=== PATIENT | male | born 1970 | race Caucasian/White ===

== ENCOUNTER 2019-11-18 17:37 | Emergency (ER) | payer SELFPAY ==
[2019-11-18 17:46] VITALS: BP 141/75; PULSE 69; RESP 18; TEMP 37.1; O2SAT 100
--- NOTE | 2019-11-18 18:04 | ED.BACK ---
HPI - Back Pain/Injury General Chief Complaint: Back Pain/Injury Stated Complaint: Lower back pain Time Seen by Provider: 11/18/19 18:04 Source: patient Mode of arrival: ambulatory Limitations: no limitations History of Present Illness HPI Narrative: Tor Cole is a 49 yo male with no PMH who comes to express care with right-sided lower back pain. 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 Using ibuprofen but still unable to get up and move around comfortably Related Data Allergies Allergy/AdvReac Type Severity Reaction Status Date / Time No Known Allergies Allergy Mild Verified 11/18/19 17:59 Review of Systems Review of Systems: Narrative: CONSTITUTIONAL: Denies fever, chills, sweats. EYES: Denies visual changes, redness, discharge. ENT: Denies rhinorrhea, congestion, sore throat, otalgia. CARDIOVASCULAR: Denies chest pain, palpitations, edema. RESPIRATORY: Denies dyspnea, wheezing, cough GASTROINTESTINAL: Denies abdominal pain, nausea, vomiting, diarrhea. GENITOURINARY: Denies dysuria, hematuria, abnormal discharge SKIN: Denies rash or itching. NEUROLOGIC: Denies numbness, or focal weakness. PSYCHIATRIC: Denies anxiety or depression. Right-sided lower back pain PMFSH Family History Family History Other Breast cancer Social History Social History Smoking status: Never smoker Alcohol intake: current Comments At time of signature, I agree with nursing past medical, surgical, social and family history. There is no relevant family history pertinent to the presenting complaint. Patient is follow-up with primary care for elevated blood pressure which may be due to back pain today Exam Narrative: Exam Narrative: GENERAL: This is a well-nourished, well-developed patient, in moderate distress. HEAD: normocephalic, atraumatic. EYES: Sclera clear/white. Vision is grossly intact. EARS: External ears normal. Hearing grossly intact. NOSE: External nose normal without nasal discharge, nares without redness, no rhinorrhea. THROAT: Mucous membranes moist, posterior pharynx NECK: Neck supple, non-tender CARDIOVASCULAR: Regular rate and rhythm without murmurs, gallops, or rubs. RESPIRATORY: Clear to auscultation. Breath sounds equal bilaterally. No wheezes, rales, or rhonchi. GASTROINTESTINAL: Abdomen soft, non-tender, SKIN: warm, intact with no suspicious lesions or rash, good texture and turgor. NEURO: awake, alert, and oriented to person, place and time. There were no obvious focal neurologic abnormalities. Steady gait EXTREMITIES: Normal range of motion. BACK: Nontender without deformity pain in the lower right back is tender to palpation there is no radiation patient moves slowly particularly when moving laterally Course Course Emergency Course: Started on baclofen and Flexeril Follow-up with orthopedics or PCP Vital Signs Vital signs: Vital Signs Temperature 98.8 F 11/18/19 17:46 Pulse Rate 69 11/18/19 17:46 Respiratory Rate 18 11/18/19 17:46 Blood Pressure 141/75 H 11/18/19 17:46 Pulse Oximetry 100 11/18/19 17:46 Temperature 98.8 F 11/18/19 17:46 Pulse Rate 69 11/18/19 17:46 Respiratory Rate 18 11/18/19 17:46 Blood Pressure 141/75 H 11/18/19 17:46 Pulse Oximetry 100 11/18/19 17:46 MDM - Back Pain/Injury Differential Diagnosis Differential diagnosis: Likely lumbar radiculopathy, sciatica, strain of lumbar region and other Discharge Plan Discharge Clinical Impression: Strain of lumbar region Qualifiers: Encounter type: initial encounter Qualified Code(s): S39.012A - Strain of muscle, fascia and tendon of lower back, initial encounter Patient Disposition: Home, Self-Care Condition: Stable Instructions: Low Back Strain (ED) Prescriptions: New baclofen 10 mg tablet 10 mg
== END 2019-11-18 18:16 | disposition home or self-care (01) ==
PROVIDERS: Emergency Provider Nurse Practitioner
DX: S39.012A Strain of muscle, fascia and tendon of lower back, initial encounter (principal); X50.9XXA Other and unspecified overexertion or strenuous movements or postures, initial encounter
CPT/HCPCS: 99213; G0463

== ENCOUNTER 2021-04-19 08:17 | Emergency (ER) | payer BC, SELFPAY ==
--- NOTE | ~2021-04-19 | XR_ITS ---
EXAMINATION: XR chest 2V EXAM DATE: 04/19/2021 08:56 INDICATION: Cough. TECHNIQUE: Frontal and lateral projections of the chest obtained and reviewed. There is no prior cas dy for comparison. FINDINGS: The lungs are clear. There are no pleural effusions. The cardiomediastinal silhouette is within normal limits. There is no pneumothorax suspected. The bones and soft tissues are unremarkab le. Cervical fusion hardware. IMPRESSION: Unremarkable chest x-ray exam. Reviewed, dictated and finalized at location A.
[2021-04-19 08:20] VITALS: BP 148/83; PULSE 59; RESP 18; TEMP 36.9; O2SAT 99
--- NOTE | 2021-04-19 08:49 | ED.URI ---
HPI - URI/Sore Throat General Chief Complaint: Upper Respiratory Infection Stated Complaint: congestion cough aches runny nose Time Seen by Provider: 04/19/21 08:45 Source: patient Mode of arrival: ambulatory Limitations: no limitations History of Present Illness HPI Narrative: Tor Cole is a 51 yo male with no PMH is a 1 pack a day smoker who [facility] symptoms since Saturday of congestion in his chest he has had nasal congestion and feels like his head is throbbing and congested. He describes his feel like a mushroom. He denies fever he is a 1 pack-a-day smoker he has taken Mucinex and cold and flu [id number] medication Related Data Home Medications Medication Instructions Recorded Confirmed famotidine 40 mg PO DAILY 04/19/21 04/19/21 Allergies Allergy/AdvReac Type Severity Reaction Status Date / Time No Known Allergies Allergy Mild Verified 11/18/19 17:59 Review of Systems Review of Systems: CONSTITUTIONAL: Denies fever, chills, sweats. EYES: Denies visual changes, redness, discharge. ENT: Has rhinorrhea, has congestion, has sore throat, otalgia. CARDIOVASCULAR: Denies chest pain, palpitations, edema. RESPIRATORY: Denies dyspnea, wheezing, has mild cough GASTROINTESTINAL: Denies abdominal pain, nausea, vomiting, diarrhea. GENITOURINARY: Denies dysuria, hematuria, abnormal discharge SKIN: Denies rash or itching. NEUROLOGIC: Denies numbness, or focal weakness. PSYCHIATRIC: Denies anxiety or depression. [facility] Family History Family History Other Breast cancer Social History Social History (Updated 04/19/21 @ 08:55 by Tiffanie Agustin CNP) Smoking packs per day: 1 Smoking cigarettes per day: 20.0 Smoking status: Current every day smoker Alcohol intake: current Comments At time of signature, I agree with nursing past medical, surgical, social and family history. There is no relevant family history pertinent to the presenting complaint. Exam Narrative: GENERAL: This is a well-nourished, well-developed patient, in mild distress. HEAD: normocephalic, atraumatic. EYES: Sclera clear/white. Vision is grossly intact. EARS: External ears normal, auditory canals clear and without drainage, TMs normal without perforation. Hearing grossly intact. NOSE: External nose normal with nasal discharge, nares with redness, has rhinorrhea. THROAT: Mucous membranes moist, posterior pharynx erythema NECK: Neck supple, non-tender CARDIOVASCULAR: Regular rate and rhythm without murmurs, gallops, or rubs. RESPIRATORY: Diminished to auscultation. Has cough, congestion.breath sounds equal bilaterally. No wheezes, rales, or rhonchi. GASTROINTESTINAL: Abdomen soft, SKIN: warm, intact with no suspicious lesions or rash, good texture and turgor. NEURO: awake, alert, and oriented to person, place and time. There were no obvious focal neurologic abnormalities. Steady gait EXTREMITIES: Normal range of motion. BACK: Nontender without deformity Course Course Emergency Course: Patient here with head congestion chest congestion cough sore throat since Saturday Swab for strep, Covid, flu- all negative Chest x-ray done-unremarkable chest x-ray no pleural effusion the cardiomediastinal silhouette is normal with no pneumothorax no bony or soft tissue findings. Patient has cervical fusion hardware Patient has high blood pressure and does not have a primary care physician so was referred using a referral sheet Started on prednisone, Tessalon Francisco, Zyrtec Vital Signs Vital signs: Vital Signs Temperature 98.4 F 04/19/21 08:20 Pulse Rate 59 L 04/19/21 08:20 Respiratory Rate 18 04/19/21 08:20 Blood Pressure 148/83 H 04/19/21 08:20 Pulse Oximetry 99 04/19/21 08:20 Temperature 98.4 F 04/19/21 08:20 Pulse Rate 59 L 04/19/21 08:20 Respiratory Rate 18 04/19/21 08:20 Blood Pressure 148/83 H 04/19/21 08:20 Pulse Oximetry 99
== END 2021-04-19 09:47 | disposition home or self-care (01) ==
PROVIDERS: Emergency Provider Nurse Practitioner
DX: J06.9 Acute upper respiratory infection, unspecified (principal); Z20.822 Contact with and (suspected) exposure to COVID-19; F17.210 Nicotine dependence, cigarettes, uncomplicated
CPT/HCPCS: 71046; 87081; 87426; 87804; 87880; 99213; C9803; G0463

== ENCOUNTER 2021-11-23 08:36 | Emergency (ER) | payer SELFPAY ==
--- NOTE | ~2021-11-23 | XR_ITS ---
EXAMINATION: XR chest 2V DATE: 11/23/2021 09:12 INDICATION: Cough TECHNIQUE: Frontal and lateral views of the chest are obtained COMPARISON: 04/19/2021 FINDINGS: The lungs are free of acute opacities. There is no pleural effusion or pneumothorax. The ca rdiomediastinal silhouette is normal. There is moderate thoracic spondylosis. Surgical changes are no shayy in the lower cervical spine. IMPRESSION: 1. No acute cardiopulmonary abnormality. Reviewed, dictated and finalized at location B.
[2021-11-23 08:43] VITALS: BP 166/78; PULSE 66; RESP 16; TEMP 36.8; O2SAT 98
--- NOTE | 2021-11-23 08:53 | ED.URI ---
HPI - URI/Sore Throat General Chief Complaint: Upper Respiratory Infection Stated Complaint: Cough/Chest Congestion Time Seen by Provider: 11/23/21 08:54 Source: patient and RN notes reviewed Mode of arrival: ambulatory Limitations: no limitations History of Present Illness HPI Narrative: 51-year-old male presented for complaint of cough, runny nose and sweats over the last 3 days. Endorses decreased appetite last night, sinus pressure, cough is productive, endorses mild wheezing this morning. He denies shortness of breath, chest pain, heart racing, nausea, vomiting, diarrhea, fevers or chills. He has not taken anything for symptoms. He is boosted for COVID, he is not vaccinated for the flu. He smokes 2 packs/day. MD elicited complaint: cough Related Data Home Medications Medication Instructions Recorded Confirmed folic acid 1 mg PO DAILY 11/23/21 11/23/21 meloxicam 15 mg PO DAILY 11/23/21 11/23/21 methotrexate sodium 2.5 mg PO DIRECTED 11/23/21 11/23/21 Allergies Allergy/AdvReac Type Severity Reaction Status Date / Time No Known Allergies Allergy Mild Verified 11/18/19 17:59 Review of Systems Review of Systems: CONSTITUTIONAL: denies malaise, chills, sweats, fever EYES: Denies visual changes, redness, or discharge ENT: Reports rhinorrhea, congestion, sinus pain, otalgia, sore throat CARDIOVASCULAR: Denies chest pain, palpitations, edema RESPIRATORY: Reports cough, post nasal drainage. Denies dyspnea GASTROINTESTINAL: Denies abdominal pain, nausea, vomiting, diarrhea SKIN: Denies rash or itching MUSCULOSKELETAL: denies myalgia NEUROLOGIC: endorses headache [facility] Family History Family History Other Breast cancer Social History Social History Smoking packs per day: 1 Smoking cigarettes per day: 20.0 Smoking status: Current every day smoker Alcohol intake: current Exam Narrative: GENERAL: Ill-appearing, nontoxic HEAD: Normocephalic EYES: conjunctivae clear ENT: Mucous membranes moist. TM pearly rae with dull light reflex bilaterally; no tragal tenderness. Canals erythematous bilaterally. Oropharynx erythematous without lesions or exudate, no drooling, no hoarseness, no trismus, uvula midline NECK: Supple. No lymphadenopathy CHEST: Clear to auscultation, breath sounds equal. No wheezing, rhonchi, rales, or stridor. No respiratory distress, speaks in full sentences. HEART: Regular rate and rhythm. No murmur heard. SKIN: Warm, dry, no rash. NEURO: Alert and oriented x3. PSYCH: Normal mood and affect Course Course Emergency Course: Patient is aware of diagnosis, understands and agrees to treatment plan. Anticipatory guidance given. Patient agrees to follow-up as directed and is aware of reasons to seek care at the emergency department. Portions of this record may have been created with voice recognition software Level of Care: Express Care Visit Vital Signs Vital signs: Vital Signs Temperature 98.2 F 11/23/21 08:43 Pulse Rate 66 11/23/21 08:43 Respiratory Rate 16 11/23/21 08:43 Blood Pressure 166/78 H 11/23/21 08:43 Pulse Oximetry 98 11/23/21 08:43 Temperature 98.2 F 11/23/21 08:43 Pulse Rate 66 11/23/21 08:43 Respiratory Rate 16 11/23/21 08:43 Blood Pressure 166/78 H 11/23/21 08:43 Pulse Oximetry 98 11/23/21 08:43 reviewed MDM - URI/Sore Throat MDM Narrative Medical decision making narrative: Symptoms c/w upper respiratory infection/ allergic rhinitis. Advised supportive treatments. Do not suspect underlying cardiopulmonary process Patient is nontoxic appearing and appropriate for outpt treatment and f/u. Differential Diagnosis Differential diagnosis: Likely upper respiratory infection, sinusitis, viral infection and influenza Lab Data Attestation: I reviewed the patient's lab results. Labs: Influenza A Screen Negative
== END 2021-11-23 09:29 | disposition home or self-care (01) ==
PROVIDERS: Emergency Provider Nurse Practitioner Family
DX: J06.9 Acute upper respiratory infection, unspecified (principal); F17.210 Nicotine dependence, cigarettes, uncomplicated; Z20.822 Contact with and (suspected) exposure to COVID-19
CPT/HCPCS: 71046; 87426; 87804; 99213; C9803; G0463

== ENCOUNTER 2022-11-08 10:32 | Emergency (ER) | payer OTHER, SELFPAY ==
[2022-11-08] VITALS (11 sets, daily range): BP systolic 152–174; BP diastolic 82–97; PULSE 66–68; RESP 16; TEMP 36.2; O2SAT 93–100
--- NOTE | ~2022-11-08 | CT_ITS ---
CT of the Abdomen and Pelvis: Indication: Abdominal pain, diarrhea Technique: 2.5 mm axial scans were obtained through the abdomen and pelvis following intravenous adm inistration of 100 cc of Omnipaque 350. Dose reduction technique was used on this scan by utilizing a utomated exposure control and iterative reconstruction technique. The dose-length product (DLP) was 1 565.17 mGy-cm. Findings: Scans through the lung bases are unremarkable. The liver, spleen, pancreas, gallbladder, adrenals and kidneys are within normal limits. No evidence of aortic aneurysm. No lymphadenopathy. No bowel obstruction or bowel wall thickening. There is no evidence to suggest acute appendicitis. Images through the pelvis were performed. Urinary bladder unremarkable. Prostate gland and seminal ve sicles are unremarkable. No ascites. Impression: No significant abnormalities seen. Reviewed, dictated and finalized at [facility]. Impression: No significant abnormalities seen.
[2022-11-08 11:54] LABS: Basophils Absolute Auto 0.1 K/mm3 (0.0-0.1); Basophils Percent Auto 0.8 % (0.2-1.2); Eosinophils Absolute Auto 0.4 K/mm3 (0-0.3); Hematocrit 45.9 % (42.0-52.0); Hemoglobin 15.5 g/dL (14.0-18.0); Immature Granulocyte Absolute 0.04 K/mm3 (0.00-0.031); Immature Granulocyte Percent A 0.4 % (0-0.5); Lymphocytes Absolute Auto 1.48 K/mm3 (0.9-3.2); Lymphocytes Percent Auto 16.1 % (18.3-44.2); Mean Corpuscular HGB Conc 33.8 g/dl (32-36); Mean Corpuscular Hemoglobin 33.3 pg (26-34); Mean Corpuscular Volume 98.7 fl (80-100); Mean Platelet Volume 9.5 fl (7.4-10.4); Monocytes Absolute Auto 1.1 K/mm3 (0.1-0.6); Monocytes Percent Auto 11.4 % (2.6-8.5); Neutrophils Absolute Auto 6.2 K/mm3 (1.3-6.7); Neutrophils Percent Auto 67.3 % (45.5-73.1); Platelet Count Result 250 k/mm3 (150-375); Red Blood Count 4.65 M/mm3 (4.6-6.20); Red Cell Distribution Width 13.2 % (11.5-14.5); White Blood Count 9.2 K/mm3 (4.5-10.0)
[2022-11-08 12:04] LABS: Alanine Aminotransferase 43 U/L (6-50); Albumin Level 4.3 g/dL (3.5-5.1); Alkaline Phosphatase 30 U/L (38-126); Anion Gap 11 mmol/L (8-16); Aspartate Amino Transferase 28 U/L (17-59); Bilirubin,Total 0.7 mg/dL (0.2-1.3); Blood Urea Nitrogen 15 mg/dL (9-20); Calcium 8.7 mg/dL (8.4-10.2); Carbon Dioxide 21 mmol/L (22-30); Chloride 105 mmol/L (98-107); Estimated CRCL calculation 141 ml/min; Estimated Glomerular Filt Rate > 60; Glucose 106 mg/dL (65-110); Lipase 71 U/L (23-300); Sodium 137 mmol/L (137-145)
[2022-11-08 12:13] LABS: Appearance Urine Clear (Clear); Bacteria Urine None Seen /hpf; Bilirubin Urine Negative (Negative); Color Urine Dark Yellow (Yellow); Glucose Urine UA Negative (Negative); Ketones Urine Trace mg/dL (Negative); Leukocyte Esterase Ur Trace LEU/UL (Negative); Nitrate Urine Negative (Negative); Non Pathogenic Casts 0-2; Protein Urine Trace mg/dL (Negative); Specific Grav Ur 1.025 (1.001-1.035); Squamous Epithelial Cell Urine None seen /hpf (Few); WBC Urine 0-5 /hpf
--- NOTE | 2022-11-08 12:26 | ED.GENADULT ---
HPI - General Adult General Chief complaint: Nausea/Vomiting/Diarrhea Stated complaint: watery diarrhea x 4 days with cold sweats Time Seen by Provider: 11/08/22 11:56 History of Present Illness HPI narrative: 52-year-old male presenting to the ED for evaluation of complaints of nausea vomiting diarrhea and diffuse abdominal pain for the last 4 days. Patient states approximate 4 days ago he began having symptoms of diarrhea and patient states he is mainly passing watery stool. Patient denies any blood in his stool. Patient states he has had multiple episodes of nausea but reports only 1 episode of vomiting. Patient denies any prior abdominal surgical history. Patient does have history of RA and does take methotrexate prednisone and meloxicam. Related Data Home Medications Medication Instructions Recorded Confirmed folic acid 1 mg tablet 1 mg PO DAILY 11/23/21 11/23/21 meloxicam 15 mg tablet 15 mg PO DAILY 11/23/21 11/23/21 methotrexate sodium 2.5 mg tablet 2.5 mg PO DIRECTED 11/23/21 11/23/21 Allergies Allergy/AdvReac Type Severity Reaction Status Date / Time No Known Allergies Allergy Mild Verified 11/08/22 11:38 Review of Systems Review of Systems: All systems reviewed & are unremarkable except as noted in HPI and below PMFSH Family History Family History Other Breast cancer Social History Social History Smoking packs per day: 1 Smoking cigarettes per day: 20.0 Smoking status: Current every day smoker Alcohol intake: current Exam Narrative: APPEARANCE: Well appearing, no pain, no distress, well-nourished. HEAD: normocephalic, atraumatic. EYES: PERRLA/EOMI, conjunctivae clear. NOSE: Normal no drainage NECK: Supple. No adenopathy, no masses. RESPIRATORY: Airway patent, respirations nonlabored. Clear to auscultation bilaterally, no rales, rhonchi, wheezing. CARDIOVASCULAR: Regular rate and rhythm without murmurs rubs or gallops. ABDOMINAL: Soft, nondistended, normal bowel sounds, diffuse abdominal pain no rebound or guarding MUSCULOSKELETAL: Moves all extremities. Strength/ROM intact, No edema, No calf tenderness. NEURO: Alert. Cranial nerves II through XII intact. Grossly intact SKIN: Warm, dry. Normal Color Course Course Emergency Course: 52-year-old male presented to the ED for evaluation nausea vomiting diarrhea diffuse abdominal pain. IV fluids and medications for pain control were ordered. Patient declined needing medications for nausea control at this time. Patient is afebrile with no leukocytosis. Patient's CMP is within normal limits. Due to patient's complaint of diffuse abdominal pain a CT scan is being ordered. Patient was updated on the plan for labs and imaging. All questions and concerns were addressed at this point. 1:[address] scan showed no significant abnormalities. No evidence of diverticulitis colitis appendicitis. Patient did have some hematuria but no other underlying evidence of infection. CT scan showed no evidence of ureteral calculi. Patient was updated on the results of his imaging. Patient will be provided Zofran for nausea control and advised to follow a clear liquid diet until his symptoms improved. Patient was also encouraged of close follow-up with GI. All question concerns were addressed and patient was comfortable to plan for discharge and close follow-up. Vital Signs Vital signs: Vital Signs Temperature 97.1 F L 11/08/22 11:38 Pulse Rate 68 11/08/22 11:38 Respiratory Rate 16 11/08/22 11:38 Blood Pressure 152/88 H 11/08/22 11:38 Pulse Oximetry 98 11/08/22 11:38 Oxygen Delivery Room Air 11/08/22 11:38 Temperature 97.1 F L 11/08/22 11:38 Pulse Rate 66 11/08/22 13:30 Respiratory Rate 16 11/08/22 11:38 Blood Pressure 152/90 H 11/08/22 13:30 Pulse Oximetry 98 11/08/22 13:30 Oxygen Delivery Room Air
[2022-11-08 12:32] LABS: Add Urine Microscopic? YES
[2022-11-08] MEDS: SODIUM CHLORIDE 0.9% IV 1,000 ML 999 ML IV CONT (12:33)
[2022-11-08] MEDS: HYDROmorphone HCL INJ (*CRX) 1 MG/ML SYR 0.5 MG IV PUSH (12:34)
== END 2022-11-08 13:48 | disposition home or self-care (01) ==
PROVIDERS: Emergency Medicine; Emergency Provider Emergency Medicine
DX: R11.2 Nausea with vomiting, unspecified (principal); R19.7 Diarrhea, unspecified; R31.9 Hematuria, unspecified; M06.9 Rheumatoid arthritis, unspecified; F17.210 Nicotine dependence, cigarettes, uncomplicated
CPT/HCPCS: 36415; 74177; 80053; 81001; 83690; 85025; 96361; 96374; 99284; J1170; J7030; Q9967

== ENCOUNTER 2024-04-17 11:09 | Emergency (ER) | payer OTHER, SELFPAY ==
--- NOTE | ~2024-04-17 | XR_ITS ---
EXAMINATION: XR shoulder LT min 2V DATE: 04/17/2024 14:36 INDICATION: Left shoulder pain TECHNIQUE: AP internally and externally rotated, AP oblique externally rotated and transscapular Y vi ews of the left shoulder were obtained. COMPARISON: None FINDINGS: Normal alignment. No acute fracture. Suggestion of an old healed left clavicle fracture deformity. G lenohumeral joint is normal. Mild acromioclavicular osteoarthritis. Prosthetic discs at C5-C6 and C6- C7. Visualized portions of the lungs are clear. Soft tissues are unremarkable. IMPRESSION: Mild left acromioclavicular osteoarthritis. Reviewed, dictated and finalized at location A.
[2024-04-17 11:29] VITALS: PULSE 71; RESP 16; TEMP 36.6; O2SAT 100
--- NOTE | 2024-04-17 14:06 | ED.UPPEXIN ---
HPI - Extremity Injury (Upper) General Chief Complaint: Extremity Injury, Upper <Janett Brito APRN - Last Filed: 04/17/24 14:12> Stated Complaint: shoulder injury <Janett Brito APRN - Last Filed: 04/17/24 14:12> Time Seen by Provider: 04/17/24 13:55 <Janett Briot APRN - Last Filed: 04/17/24 14:12> Focused HPI: Patient is a 54-year-old male who reports to the ER with complaints of left shoulder pain. 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 Patient reports he 1st noticed the pain on Saturday night when he got home from work. He reports the pain has been getting worse. Patient endorses a history of rheumatoid arthritis. He takes tramadol and naproxen at home but he reports that has not been touching it. Patient denies chest pain, shortness of breath, numbness or tingling. He endorses that his left hand feels swollen. GENERAL: Well-appearing, well-nourished, and in no acute distress. HEAD: Normocephalic, atraumatic. CHEST: Clear to auscultation. ?No respiratory distress. HEART: Regular rate and rhythm.? NEURO: ?Alert and oriented x3. Pt endorses pain with abduction, adduction, and rotation. Patient screened in triage and initial orders placed.? ?Additional care and disposition to be based upon?diagnostic testing and treatment. <Janett Brito APRN - Last Filed: 04/17/24 14:12> Related Data Home Medications: Home Medications Medication Instructions Recorded Confirmed folic acid 1 mg tablet 1 mg PO DAILY 11/23/21 11/23/21 meloxicam 15 mg tablet 15 mg PO DAILY 11/23/21 11/23/21 methotrexate sodium 2.5 mg tablet 2.5 mg PO DIRECTED 11/23/21 11/23/21 <Janett Brito APRN - Last Filed: 04/17/24 14:12> Allergies/Adverse Reactions: Allergies Allergy/AdvReac Type Severity Reaction Status Date / Time No Known Allergies Allergy Mild Verified 11/08/22 11:38 <Janettcaridad Brito APRN - Last Filed: 04/17/24 14:12> Review of Systems Review of Systems: All systems as dictated in HPI <Jd Chu PA-C - Last Filed: 04/17/24 20:04> PMFSH Family History Family History: Family History Other Breast cancer <Janett Brito APRN - Last Filed: 04/17/24 14:12> Social History Social History: Social History Smoking packs per day: 1 Smoking cigarettes per day: 20.0 Smoking status: Current every day smoker Alcohol intake: current <Janett Brito APRN - Last Filed: 04/17/24 14:12> Exam Narrative: GENERAL: Well-appearing, well-nourished, and in no acute distress. HEAD: Normocephalic, atraumatic. EYES: PERRLA and EOMI. ENT: Nares clear, no rhinorrhea or epistaxis. Mucous membranes moist. Oropharynx without tonsillar hypertrophy exudate or other lesions. NECK: Supple. No adenopathy or masses. CHEST: No respiratory distress. Clear to auscultation. No wheezes rales or rhonchi HEART: Regular rate and rhythm. No murmur heard. Normal peripheral pulses. ABDOMEN: Soft, nontender, nondistended, normal active bowel sounds. MSK: Passive range of motion of the left shoulder limited due to pain. No effusion, warmth or erythema of the shoulder. Neurovascularly intact distally. SKIN: Warm, dry, no rash. NEURO: Alert and oriented x4. No focal deficits. PSYCH: Normal mood and affect. <Jd Chu PA-C - Last Filed: 04/17/24 20:04> Course Vital Signs Vital signs: Vital Signs Temperature 97.8 F 04/17/24 11:29 Pulse Rate 71 04/17/24 11:29 Respiratory Rate 16 04/17/24 11:29 Pulse Oximetry 100 04/17/24 11:29 Oxygen Delivery Room Air 04/17/24 11:29 Temperature 98.4 F 04/17/24 17:58 Pulse Rate 73 04/17/24 17:58 Respiratory Rate 16 04/17/24 17:58 Blood Pressure 159/88 H 04/17/24 17:58 Pulse Oximetry 98 04/17/24 17:58 O
[2024-04-17 17:03] VITALS: BP 162/77; PULSE 73; RESP 18; O2SAT 99
[2024-04-17] MEDS: HYDROcodone/acetaminophen (*CRX) 5-325 MG TABLET 1 TAB PO (17:05)
[2024-04-17 17:58] VITALS: BP 159/88; PULSE 73; RESP 16; TEMP 36.9; O2SAT 98
== END 2024-04-17 17:59 | disposition home or self-care (01) ==
PROVIDERS: Emergency Provider Physician Assistant
DX: M25.512 Pain in left shoulder (principal); F17.210 Nicotine dependence, cigarettes, uncomplicated
CPT/HCPCS: 73030; 99283; A4565; A9270

== ENCOUNTER 2024-05-06 11:11 | Emergency (ER) | payer BC, SELFPAY ==
[2024-05-06 11:21] VITALS: BP 149/85; PULSE 70; RESP 18; TEMP 37; O2SAT 99
--- NOTE | 2024-05-06 11:40 | ED.URI ---
HPI - URI/Sore Throat General Chief Complaint: Upper Respiratory Infection Stated Complaint: Dizziness/Cough/Light Headed Time Seen by Provider: 05/06/24 11:40 Source: patient Mode of arrival: ambulatory Limitations: no limitations History of Present Illness HPI Narrative: 54-year-old male presents with complaint of congestion, sore throat, postnasal drainage, headaches, sinus pressure, coughing for the past 7 day days. Not taking any [id number] medications to treat his symptoms. Reports that he has intermittently dizzy. Coughing up brown sputum from his lungs. Positive fatigue. No chest pain or shortness of breath. All systems reviewed and negative except as noted above. Related Data Home Medications Medication Instructions Recorded Confirmed folic acid 1 mg tablet 1 mg PO DAILY 11/23/21 11/23/21 meloxicam 15 mg tablet 15 mg PO DAILY 11/23/21 11/23/21 methotrexate sodium 2.5 mg tablet 2.5 mg PO DIRECTED 11/23/21 11/23/21 diclofenac sodium 75 mg mg PO 05/06/24 tablet,delayed release Allergies Allergy/AdvReac Type Severity Reaction Status Date / Time No Known Allergies Allergy Mild Verified 11/08/22 11:38 Review of Systems Review of Systems: CONSTITUTIONAL: Denies fever, chills, or sweats. Reports fatigue. EYES: Denies visual changes, redness, or discharge. ENT: Denies Reports congestion, sore throat. Denies otalgia. CARDIOVASCULAR: Denies chest pain, palpitations, or edema. RESPIRATORY: reports cough. Denies dyspnea. GASTROINTESTINAL: Denies abdominal pain, nausea, vomiting, or diarrhea. GENITOURINARY: Denies dysuria or hematuria. SKIN: Denies rash or itching. MUSCULOSKELETAL: Denies back pain, joint pain, or myalgia. NEUROLOGIC: Denies headache, numbness, or weakness. PSYCHIATRIC: Denies anxiety or depression. All other systems reviewed are negative, except as documented in HPI. [facility] Family History Family History Other Breast cancer Social History Social History Smoking packs per day: 1 Smoking cigarettes per day: 20.0 Smoking status: Current every day smoker Alcohol intake: current Comments At time of signature, agree with nursing past medical, surgical, social and family history. There is no relevant family history pertinent to the presenting complaint. Exam Narrative: GENERAL: This is a well-nourished, well-developed patient, ill-appearing but no acute distress HEAD: normocephalic, atraumatic. EYES: PERRL. Sclera clear/white. Vision is grossly intact. EARS: External ears normal, auditory canals clear and without drainage, TMs normal without perforation. Hearing grossly intact. NOSE: External nose normal with purulent nasal drainage, erythema swelling to bilateral nares, mild congestion THROAT: Mucous membranes moist, erythema with postnasal drainage, mild swelling. no exudates NECK: Neck supple, non-tender without lymphadenopathy, masses or thyromegaly. CARDIOVASCULAR: Regular rate and rhythm without murmurs, gallops, or rubs. RESPIRATORY: Clear to auscultation. Breath sounds equal bilaterally. No wheezes, rales, or rhonchi. SKIN: warm, Dry, intact with no suspicious lesions or rash, good texture and turgor. NEURO: awake, alert, and oriented to person, place and time. There were no obvious focal neurologic abnormalities. EXTREMITIES: No joint tenderness, effusion, or edema noted. Course Course Level of Care: Express Care Visit Vital Signs Vital signs: Vital Signs Temperature 37.0 C 05/06/24 11:21 Pulse Rate 70 05/06/24 11:21 Respiratory Rate 18 05/06/24 11:21 Blood Pressure 149/85 H 05/06/24 11:21 Pulse Oximetry 99 05/06/24 11:21 Oxygen Delivery Room Air 05/06/24 11:21 Temperature 37.0 C 05/06/24 11:21 Pulse Rate 70 05/06/24 11:21 Respiratory Rate 18 05/06/24 11:21 Blood Pressure 149/85 H 05/06/24 11
== END 2024-05-06 11:52 | disposition home or self-care (01) ==
PROVIDERS: Emergency Provider Nurse Practitioner Family
DX: R05.9 Cough, unspecified (principal); J01.90 Acute sinusitis, unspecified; F17.210 Nicotine dependence, cigarettes, uncomplicated
CPT/HCPCS: 99213; G0463

== ENCOUNTER 2024-08-17 11:15 | Outpatient (RCR) | payer MEDICAID, SELFPAY ==
--- NOTE | 2024-07-23 12:32 | OPREHPOC ---
Outpatient Therapy Plan of Care This is a Multidisciplinary Plan of Care that may contain components documented by all disciplines (PT, OT, and ST.) PT Problem 1 PT Problem #1 Knowledge Deficit PT Goal 1 Goal / Goal Update Cross with HEP Target Visit 4 PT Goal 2 Goal / Goal Update Report 2 consecutive weeks with pain no greater than 3/10 Target Visit 8 PT Problem 2 PT Problem #2 Impaired Range of Motion PT Goal 1 Goal / Goal Update 1. Achieve 170+ degrees of left shoulder flexion ROM 2. Achieve 80+ degrees of left shoulder external rotation ROM to improve self care reach Target Visit 8 PT Problem 3 PT Problem #3 Impaired Strength PT Goal 1 Goal / Goal Update 1. Improve left shoulder flexion strength to 4+/5 to improve active lifting ability 2. Improve L shoulder external rotation strength to 4+/5 to improve shoulder stability with ADLs Target Visit 8 PT Problem 4 PT Problem #4 Impaired Functional ADLs PT Goal 1 Goal / Goal Update Improve QuickDASH score by 20% indicating improve functional shoulder use Target Visit 8
--- NOTE | 2024-07-23 12:33 | PTOPEVAL1 ---
Assessment and note entered by Rocky Bean, PT Evaluation Information Assessment Status Evaluation Diagnosis G89.29- Chronic pain ICD-10 Condition Codes (PT) Pain in left shoulder M25.512 Onset May 2024 Subjective Information Reports that he has been having left shoulder pain for about 2 months. Does not remember a mechanism of injury other than lifting a tool bag multiple times. Was told that they believe that he has a torn rotator cuff. He has a history of rheumatoid arthritis and the x-ray was evident of this. Having a lot of trouble reaching behind his head, or behind his back. 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 Reports that he is haivng some numbness and tingling in his hand at night. Most pain is on back of shoulder and into elbow. Reported Pain Level Pain Score 4: Self Report Assessment PT Clinical Summary Patient presents with signs and symptoms consistent with scapular dyskinesia and inflammation of rotator cuff. Impingement type symptoms noted with motion and patient has some notable capsular restriction. 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 Plan of Care Interventions Electrical Stimulation,Manual Therapy,Neuro Re- education,Therapeutic Activities,Therapeutic Exercise PT Services Indicated Yes Treatment Frequency and 2x/week for 8 visits Duration These treatments will address the objective and functional deficits as defined above. The patient will be advanced safely and appropriately in order for the patient to progress towards his/her prior level of function. Additional exercises will be introduced and as well as a comprehensive home exercise program upon discharge, if needed, ?to ensure carryover of functional gains achieved in the clinic. This treatment plan has been reviewed and agreement upon by the patient.
--- NOTE | 2024-08-10 10:46 | PCPTNOTE ---
Called and canceled, ill.
--- NOTE | 2024-08-13 11:31 | PCPTNOTE ---
Canceled due to family ER. JARVIS
--- NOTE | 2024-08-20 14:27 | PCPTNOTE ---
pt did not show for today's reevaluation appt. Called and his voice mail box was full, unable to leave message.
--- NOTE | 2024-09-22 11:19 | PTOPDC ---
Assessment and note entered by Sunshine Petty, PT Assessment Status Discharge - Pt Not Present Diagnosis G89.29- Chronic pain ICD-10 Condition Codes (PT) Pain in left shoulder M25.512 Onset May 2024 Subjective Information pt was not seen this date Assessment PT Clinical Summary Tor has received 5 PT sessions, from July 23 to . He then stopped attending. He had 2 call/cancel and 1 no show appointments. Discharge PT due to not attending. The goals were not addressed. Plan of Care PT Services Indicated No
== END 2024-09-22 13:06 | disposition home or self-care (01) ==
LOC: ANHPT 11:15
PROVIDERS: Visit Provider Internal Medicine
DX: M25.512 Pain in left shoulder (principal); G89.29 Other chronic pain
CPT/HCPCS: 97014; 97110; 97140; 97161; G0283

== ENCOUNTER 2024-11-26 20:24 | Emergency (ER) | payer SELFPAY ==
--- OUTSIDE RECORDS SUMMARY | 2024-11-26 20:26 | XMS_ITS | Clinical Summary ---
Author Organization [facility] Address [address] [place] [address] Care Team Providers Care Dial Brusher Name Role Phone Roro Torres VICE CHANCELLOR-TRANSIT CLERK Primary Care Provide r Source Comments [facility],non-owned Affiliates and Associated Physician Practices is amultiple site organization consisting of ambulatory clinics and hospital sitesin [place], [place], [place] and [place]. This disclosure is being madepursuant to the Care Everywhere program and may not contain all information available regarding this patient. 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 Gender Identity Not on file Sexual Orientation Not on file Plan of Treatment Upcoming Encounters Date Type Department Care Team (Late st Contact Info) Description 02/18/2025 8:30 AM CDT Office Visit [facility] - Rheumatology [address] [place] [address], [place] [phone] Matti Peña MD [address] [place] [address] [place] [phone] Health Maintenance Due Date Last Done Comments COLOGUARD (AGES 45-75) - COL ON CA SCREENING 1970 COLON MONITORING 1970 COLONOSCOPY - COLON CA SCREENING 1970 CT COLONOGRAPHY - COLON CA SCREENING 1970 Colorectal Cancer Screening 1970 FIT - COLON CA SCREENING 1970 FLEX SIG - COLON CA SCREENING 1970 LIPID TESTING 1970 HIV SCREENING 1985 HEPATITIS C SCREENING 03/13/1988 DTAP/TDAP/TD VACCINES (1 - Tdap) 1989 HEPATITIS B VACCINE (1 of 3 - 19+ 3-dose series) 1989 PNEUMOCOCCAL VACCINE 50+ (1 of 1 - PCV) 2020 ZOSTER VACCINE (1 of 2) 2020 COVID-19 VACCINE (1 - 2023-2 5 season) 2024 DEPRESSION SCREENING 07/22/2024 INFLUENZA VACCINE (Season Ended) 2025 HIB VACCINE Aged Out No longer eligi ble based on patient's age to complete this topic HPV VACCINE Aged Out No longer eligi ble based on patient's age to complete this topic MENINGOCOCCAL (Group B) VACC INE SHARED DECISION-MAKING Aged Out No longer eligibl e based on patient's age to complete this topic MENINGOCOCCAL GROUPS A/C/Y/W VACCINE Aged Out No longer eligible b ased on patient's age to complete this topic Insurance MEDICAID - [place] Care Teams Dial Brusher Relationship Specialty Start Date End Date Roro Torres APRN-TRANSIT CLERK [address] [phone] PCP - General Nurse Practitioner 07/29/24
--- OUTSIDE RECORDS SUMMARY | 2024-11-26 20:27 | XMS_ITS | Clinical Summary ---
Author Organization [facility] Address [address] [place] [address] Phone Care Team Providers Care Manager Biostatistics Name Role Phone Roro Torres APRN, ELEMENT BURNER Primary Care Provid er Nehemias Roland MD Unavailable Evelio Lara APRN, ELEMENT BURNER Unavailable [phone] Francis Aviles MD Unavailable [phone] Allergies Active Allergy Reactions Criticality Noted Date Comments Leflunomide Hives 12/10/2022 Lisinopril Other (see Comments) 12/25/2022 cough Medications folic acid (FOLVITE) 1 MG Tablet daily. 3 Active meloxicam (MOBIC) 15 MG Tablet daily. INSTRUCTED TO HOLD FOR 7 DAYS PRIOR TO SURGERY ON 04/19/2023 3 Active methotrexate 2.5 MG TabletIndications :Rheumatoid Arthritis 20 mg Saturdays - TAKE 8 TABS AT A TIME Indications: Rheumatoid Arthritis 3 Active traMADol (ULTRAM) 50 MG Tablet 2 times daily. 3 Active naproxen (NAPROSYN) 500 MG Tablet Take 1 Tablet by mouth 2 times daily as needed for Mild or more severe pain. 20 Tablet 4 Active hydroCHLOROthiazi de (MICROZIDE) 12.5 MG CapsuleIndication s:Primary hypertension TAKE 1 CAPSULE BY MOUTH DAILY 90 Capsule 1 5 Active losartan (COZAAR) 100 MG Tablet TAKE 1/2 TABLET BY MOUTH ONCE DAILY 45 Tablet 1 Active Active Problems Problem Noted Date Diagnosed Date Left sided sciatica 11/26/2023 Skin tear of left lower leg without complication 11/26/2023 Morbid obesity 11/26/2023 Obstructive sleep apnea syndrome 04/25/2023 Primary hypertension 04/25/2023 Enlarged prostate 04/25/2023 Laryngopharyngeal reflux (LPR) 04/18/2021 Overview (12/10/2022): Last Assessment & Plan: Ultrasound guided biopsy of Left Parotid Mass - call with results Suspect nasopharyngeal inflammation seen on PET scan was inflammation from reflux Start Pepcid 40 mg at bedtime LPR discussed and handout provided Mass of left parotid gland 04/18/2021 Overview (12/10/2022): Last Assessment & Plan: Ultrasound guided biopsy of Left Parotid Mass - call with results Lymphadenopathy 01/24/2021 Overview (12/10/2022): Last Assessment & Plan: Ultrasound guided biopsy of Left Parotid Mass - call with results Suspect nasopharyngeal inflammation seen on PET scan was inflammation from reflux Start Pepcid 40 mg at bedtime Pulmonary nodules 01/24/2021 Overview (12/10/2022): Last Assessment & Plan: Agree with Pulmonary workup Encounters Date Type Department Care Team Description 11/26/2024 [facility] [place] [place] [address] [place] [address] Roro Torres APRN, KARLEE Medication Refill 11/03[facility]20[facility] [place] [facility] [place] [address] Roro Torres APRN, KARLEE Medication Refill 10/27/2024 [facility] [address] [place] [address] Roro Torres APRN, CNP Follow-up 10/27/2024 Refill [facility] [address] [place] [phone] Garry Lucas MD Medication Refill 10/12/2024 Telephone [facility] [address] [place] [phone] Laurent Prasad MD Form Completion 09/09/[address] [facility] [address] [place] [address] Roro Torres APRN, CNP Need Order from Last 3 Months Immunizations Immunization Administration Dates Next Due Influenza Vaccine, Quadrivalent, PF 04/25/2023 Family History Medical History Relation Name Comments No Known Problems Daughter 1 No Known Problems Daughter 2 Heart Attack Father Heart Surgery Father Stent placemen t Other-comment Father PTSD from war No Known Problems Half-Brother 1 jeyson No Known Problems Half-Brother 2 kassidy No Known Problems Maternal Grandfather No Known Problems Maternal Grandmother Breast Cancer Mother Cancer Mother Leukemia/Lymphoma Mother Lymph Dementia Paternal Grandfather Stroke Paternal Grandmother No Known Problems Sister No Known Problems Son Relation Name Status Comments Daughter 1 Alive Daughter 2 Alive Father Alive Half-Brother 1 jeyson Alive Half-Brother 2 kassidy Alive Maternal Grandfather Maternal Grandmother Mother Alive Paternal Grandfather Paternal Grandmother Sister Alive Son Alive Social History Tobacco Use Types Packs/Day Years Used Date Smoking Tobacco: Every Day Cigarettes 1 37.3 Started: 1987 Smokeless Tobacco: Never Tobacco Cessation:Ready to Q uit: No; Counseling Given: Yes Alcohol Use Standard Drinks/Week Comments Yes 0 (1 standard drink = 0.6 oz pur e alcohol) socially Education Answer Date Recorded What is the highest level of school you have completed or the highest degree you have received? GED or equivalent Sexually Active Control Partners Comments Yes Female Sex and Gender Information Value Date Recorded Sex Assigned at Not on file Legal Sex Male 7:15 AM CDT Gender Identity Not on file Sexual Orientation Not on file Last Filed Vital Signs Vital Sign Reading Time Taken Comments Blood Pressure 130/64 05/26/2024 6:53 AM ROTARY SAW OPERATOR Pulse 71 05/26/2024 6:53 AM ROTARY SAW OPERATOR Temperature 37.2 C (99 F) 05/26/2024 6:53 AM ROTARY SAW OPERATOR Respiratory Rate 12 05/26/2024 6:53 AM ROTARY SAW OPERATOR Oxygen Saturation 97% 05/26/2024 6:53 AM ROTARY SAW OPERATOR Inhaled Oxygen Concentration - - Weight 147.6 kg (325 lb 6.4 oz) 05/26/2024 6:53 AM ROTARY SAW OPERATOR Height 185.4 cm (6' 1 ) 05/26/2024 6:53 AM ROTARY SAW OPERATOR Body Mass Index 42.93 05/26/2024 6:53 AM ROTARY SAW OPERATOR Plan of Treatment Health Maintenance Due Date Last Done Comments Hepatitis C Virus (HCV) Screening 1970 TdaP Immunization 1970 Hepatitis B Immunization (1 of 3 - 19+ 3-dose series) 1989 Pneumococcal Immunization (5 0+ years) (1 of 2 - PCV) 1989 Zoster Immunization (1 of 2) 1989 Cologuard 2020 Immunochemical Fecal Occult Blood 2020 Lung Cancer Screening 05/08/2022 05/08/2021 SARS-COV-2 Immunization ( season) 2024 08/27/2021, 12/10/2020, 11/19/2020 Influenza Immunization (Seas on Ended) 2025 04/25/2023 Colonoscopy 01/28/2033 01/28/2023, 01/28/2023 Colorectal Cancer Screening 01/28/2033 Respiratory Syncytial Virus (RSV) Immunization (Adult) (1 - 1-dose 75+ series) 2045 01/28/2023 Human Papillomavirus (HPV) Immunization Aged Out No longer eligible b ased on patient's age to complete this topic Meningococcal Immunization (ACWY) Aged Out No longer eligible b ased on patient's age to complete this topic Rotavirus Immunization Aged Out No lo nger eligible based on patient's age to complete this topic Procedures Procedure Name Priority Date/Time Associated Diagnosis Comments PHYSICAL THERAPY CONSULT 09/22/2024 12:00 AM ROTARY SAW OPERATOR from Last 3 Months Results * PHYSICAL THERAPY CONSULT (09/22/2024 12:00 AM ROTARY SAW OPERATOR) 09/22/2024 us Provider Scan GENERIC SCAN ORDERS CONSULT Sophie pretty Result SCAN from Last 3 Months Insurance MEDICAID [place] Care Teams Manager Biostatistics Relationship Specialty Start Date End Date Roro Torres APRN, ELEMENT BURNER [address] [facility] [address] [place] [phone] PCP - General Advanced Practice Nurse 12/10/22 Nehemias Roland MD [address] [facility] [address] [place] [address] Consulting Physician Colon and Rectal Surgery 12/28/22 Evelio Lara APRN, ELEMENT BURNER [address] [place] [address] Nurse Practitioner Advanced Practice Nurse 02/26/23 Francis Aviles MD [address] [facility] [address] [place] [address] Consulting Physician Urology 04/09/23
--- OUTSIDE RECORDS SUMMARY | 2024-11-26 20:27 | XMS_ITS | Referral Summary ---
Author Organization [facility] Address [address] [place] [address] Care Team Providers Care Harbor Master Name Role Phone No, Physician Primary Care Provider [phone] Allergies No known active allergies Medications ibuprofen (ADVIL,MOTRIN) 100 mg chewable tablet Take by mouth as needed for pain Active famotidine (PEPCID) 40 mg tabletIndicatio ns:Laryngophary ngeal reflux (LPR) Take 1 tablet (40 mg total) by mouth nightly 90 tablet 3 04/18/2021 Active benzonatate (TESSALON) 100 mg capsuleIndicati ons:Cough Take 100 mg by mouth 3 (three) times a day as needed for cough Active cetirizine 10 mg capsule Take 10 mg by mouth Active Active Problems Problem Noted Date Diagnosed Date Laryngopharyngeal reflux (LPR) 04/18/2021 Assessment & Plan (04/18/2021 4:43 PM CDT): Ultrasound guided biopsy of Left Parotid Mass - call with results Suspect nasopharyngeal inflammation seen on PET scan was inflammation from reflux Start Pepcid 40 mg at bedtime LPR discussed and handout provided Mass of left parotid gland 04/18/2021 Assessment & Plan (04/18/2021 4:43 PM CDT): Ultrasound guided biopsy of Left Parotid Mass - call with results Dental caries 04/18/2021 Assessment & Plan (04/18/2021 4:44 PM CDT): Dental evaluation recommended Dental contacts provided Lymphadenopathy 01/24/2021 Assessment & Plan (04/18/2021 4:43 PM CDT): Ultrasound guided biopsy of Left Parotid Mass - call with results Suspect nasopharyngeal inflammation seen on PET scan was inflammation from reflux Start Pepcid 40 mg at bedtime Pulmonary nodules 01/24/2021 Assessment & Plan (04/18/2021 4:43 PM CDT): Agree with Pulmonary workup Immunizations Immunization Administration Dates Next Due Pfizer SARS-CoV-2 Monovalent Vaccination (12+ Yrs) PURPLE 12/10/2020,11/19/2020 Social History Tobacco Use Types Packs/Day Years Used Date Smoking Tobacco: Every Day Cigarettes AUDIT-C Answer Date Recorded Q1: How often do you have a drink containing alc ohol? Monthly or less 04/26/2021 Q2: How many drinks containi ng alcohol do you have on a typical day when you are drinking? 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 Gender Identity Not on file Sexual Orientation Not on file Last Filed Vital Signs Vital Sign Reading Time Taken Comments Blood Pressure 140/70 04/26/2021 2:25 PM CDT Pulse 69 04/26/2021 2:25 PM CDT Temperature 36.1 C (97 F) 04/26/2021 11:30 AM CDT Respiratory Rate 12 04/26/2021 2:25 PM CDT Oxygen Saturation 97% 04/26/2021 2:25 PM CDT Inhaled Oxygen Concentration - - Weight 130.6 kg (288 lb) 04/26/2021 11:30 AM CDT Height 185.4 cm (6' 1 ) 04/26/2021 11:30 AM CDT Body Mass Index 38 04/26/2021 11:30 AM CDT Plan of Treatment Not on file Insurance [place] [employer] PPO [place] BLUE ACCESS OOS BLUE ACCESS OOS Care Teams Harbor Master Relationship Specialty Start Date End Date No, Physician PCP - General 04/26/21
--- OUTSIDE RECORDS SUMMARY | 2024-11-26 20:27 | XMS_ITS | Clinical Summary ---
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 Gender Identity Not on file Sexual Orientation Not on file Obstetrics History Last Filed Vital Signs Vital Sign Reading [...] 04/26/2021 11:30 AM CDT Plan of Treatment Health Maintenance Due Date Last Done Comments Colon Cancer Screening-Colonoscopy 1970 Depression Screening 1970 Hepatitis C Screening 1970 Prostate Cancer Screening-PSA 1970 DTaP/Tdap/Td Vaccine (1 - Tdap) 1981 Hepatitis B Screening 1988 Regular Well Visit/Exam 18-64 1988 Pneumococcal vaccine <65 (1 of 2 - PCV) 1989 Zoster Vaccine (1 of 2) 2020 Covid-19 Vaccine (3 - season) 2024, 11/19/2020 Influenza Vaccine (Season Ended) 2025 04/25/20 23 Insurance BL CHOICE PRF PPO [facility] OOS [employer] OOS Care Teams Early Intervention Specialist Relationship Specialty Start Date End Date No, Physician PCP - General 04/26/21
--- OUTSIDE RECORDS SUMMARY | 2024-11-26 20:27 | XMS_ITS | Encounter Summary ---
Author Organization [facility] Address [address] [place] [address] Phone Care Team Providers Care Energy Audit Advisor Name Role Phone Roro Torres APRN, TAPING FOREMAN Primary Care Provid er Nehemias Roland MD Unavailable Evelio Lara APRN, CNP Unavailable [phone] Francis Aviles MD Unavailable [phone] Reason for Visit * Reason Comments Medication Refill Encounter Details Date Type Department Care Team (Late st Contact Info) Description 11/26/2024 Refill [facility] #[address] [place] [address] Roro Torres APRN, KARLEE [address] [address] Medication Refill Social History Tobacco Use Types Packs/Day Years Used Date Smoking Tobacco: Every Day Cigarettes 1 37.3 Started: 1987 Smokeless Tobacco: Never Alcohol Use Standard Drinks/Week Comments Yes 0 [...] on file Sexual Orientation Not on file documented as of this encounter Miscellaneous Notes * Telephone Encounter - Delmy Patel RN - 11/26/2024 10:30 AM CDT Images from the original note were not included. hydroCHLOROthiazide Dispensed Days Supply Quantity Provider Pharmacy HYDROCHLOROTHIAZIDE 12.5 MG CP 08/29/2024 90 90 Each Roro Torres APRN, CNP [facility]/pharmacy #[id number] - ... HYDROCHLOROTHIAZIDE 12.5MG CAPSULES 08/04/2024 90 90 Each Roro Torres APRN, CNP [facility]... documented in this encounter Plan of Treatment Not on file documented as of this encounter Visit Diagnoses Diagnosis Primary hypertension Unspecified essential hypertension documented in this encounter Care Teams Energy Audit Advisor Relationship Specialty Start Date End Date Roro Torres APRN, CNP #2 [facility] [address] [place] [address] PCP - General Advanced Practice Nurse 12/10/22 Nehemias Roland MD #2 [facility] [address] [place] [address] Consulting Physician Colon and Rectal Surgery 12/28/22 Evelio Lara APRN, CNP #2 [place] [address] Nurse Practitioner Advanced Practice Nurse 02/26/23 Francis Aviles MD #2 [facility] [address] [place] [address] Consulting Physician Urology 04/09/23 documented as of this encounter
--- OUTSIDE RECORDS SUMMARY | 2024-11-26 20:27 | XMS_ITS ---
Author Organization [facility] lisa Address [address] [facility] [address] [place] [address] Care Team Providers Care Music Educator Name Role Phone Melissa GILBERT, Roro Primary Care Provider Doris Espinosa [phone] REASON FOR VISIT Refills Medications Medication SIG (Take, Route, Frequency, Duration) Notes Start Date End Date Status Diclofenac Sodium 75 MG 1 Orally Twice a day for 30 days 04/20/2024 12/31/2024 Active Encounters Encounter Location Date Provider Diagnosis [facility] [address] [facility] [address] [place] [address] 11/01/2024 Doris Jay Plan Of Treatment Medication Medication Name Sig Start Date Stop Date Notes Diclofenac Sodium 75 MG 1 Orally Twice a day for 30 days 0 04/20/2024 12/31/2024 Progress Notes * Tor AGUILARDOB:1970 ([age] yo M)Acc No.[id number]:11/01/2024 Patient: Tor VALE :1970 A ge:54 Y S ex:Male Address:[address] [place] [address], [address] * Refills Refill Diclofenac Sodium Tablet Delayed Release, 75 MG, Orally, 60, 1, Twice a day, 30 days, Refills=1 * true * Date: Generated for Gwen escobar/Brock/eTdaniellesmitting on: 0 11/26/2024 08:27 PM CDT
--- OUTSIDE RECORDS SUMMARY | 2024-11-26 20:27 | XMS_ITS | Encounter Summary ---
Author Organization [facility] Address [address] [place] [address] Phone Care Team Providers Care Intellectual Property Manager Name Role Phone Roro Torres APRN, GAS SHOVEL OPERATOR Primary Care Provid er Nehemias Roland MD Unavailable Evelio Lara APRN, GAS SHOVEL OPERATOR Unavailable [phone] Francis Aviles MD Unavailable [phone] Reason for Visit * Reason Comments Medication Refill Encounter Details Date Type Department Care Team (Late st Contact Info) Description 08/28/2023 Refill [facility] [address] [place] [id number] Francis Aviles MD #[address] [address] Medication Refill Social History Tobacco Use Types [...] encounter Miscellaneous Notes * Telephone Encounter - Barbara Barriga RN - 08/29/2023 9:37 AM CST Per nursing clinical judgement, provider to review and approve the medication(s) order(s) if appropriate. Requested Prescriptions Pending Prescriptions Disp Refills tamsulosin (FLOMAX) 0.4 MG Capsule [Pharmacy Med Name: TAMSULOSIN 0.4MG CAPSULES] 30 Capsule 3 Sig: Take 1 Capsule by mouth daily. Benign Prostatic Hyperplasia Medications Protocol Passed - 08/28/2023 12:48 PM Passed - Visit with relevant provider in past 12 months or upcoming 90 days Recent Visits Date Type Provider Dept 06/25/23 Office Visit Garry Lucas MD [facility] 05/03/23 Office Visit Francis Aviles MD [facility] [place] 04/25/23 Office Visit Roro Torres APRN, [facility] [place] 04/09/23 Procedure Visit Francis Aviles MD [facility] [place] 02/26/23 Office Visit Evelio Lara APRN, KARLEE [facility] [place] 01/08/23 Office Visit Roro Torres APRN, [facility] 12/25/22 Office Visit Roro Torres APRN, [facility] 12/10/22 Office Visit Roro Torres APRN, KARLE[facility] [place] Showing recent visits within past 365 days and meeting all other requirements Future Appointments No visits were found meeting these conditions. Showing future appointments within next 90 days and meeting all other requirements H THERAPIST documented in this encounter Plan of Treatment Not on file documented as of this encounter Visit Diagnoses Not on filedocumented in this encounter Care Teams Intellectual Property Manager Relationship Specialty Start Date End Date Roro Torres APRN, KARLEE [address] [address] PCP - General Advanced Practice Nurse 12/10/22 Nehemias Roland MD #2 [facility] [address] [place] [address] Consulting Physician Colon and Rectal Surgery 12/28/22 Evelio Lara APRN, GAS SHOVEL OPERATOR #2 [place] [address] Nurse Practitioner Advanced Practice Nurse 02/26/23 Francis Aviles MD #2 [facility] [address] [place] [address] Consulting Physician Urology 04/09/23 documented as of this encounter
--- OUTSIDE RECORDS SUMMARY | 2024-11-26 20:27 | XMS_ITS ---
Author Organization [facility] lisa Address [address] [address] [place] [address] Care Team Providers Care Railcar Switcher Name Role Phone Melissa GILBERT, Roro Primary Care Provider Doris Espinosa [phone] REASON FOR VISIT Refills Medications Medication SIG (Take, Route, Frequency, Duration) Notes Start Date End Date Status Diclofenac Sodium 75 MG 1 Orally Twice a day for 30 days 04/20/2024 01/02/2025 Active Encounters Encounter Location Date Provider Diagnosis [facility] [address] [facility] [address] [place] [address] 11/03/2024 Doris Jay Plan Of Treatment Medication Medication Name Sig Start Date Stop Date Notes Diclofenac Sodium 75 MG 1 Orally Twice a day for 30 days 0 04/20/2024 01/02/2025 Progress Notes * Tor AGUILARDOB:1970 ([age] yo M)Acc No.[id number]:11/03/2024 Patient: Tor VALE :1970 A ge:54 Y S ex:Male Address:[address] [place] [address], [address] * Refills Refill Diclofenac Sodium Tablet Delayed Release, 75 MG, Orally, 60, 1, Twice a day, 30 days, Refills=1 * true * Date: Generated for Gwen escobar/Brock/eTdaniellesmitting on: 0 11/26/2024 08:27 PM CDT
--- OUTSIDE RECORDS SUMMARY | 2024-11-26 20:27 | XMS_ITS | Encounter Summary ---
Author Organization [facility] Address [address] [place] [address] Phone Care Team Providers Care County Demonstrator Name Role Phone Roro Torres APRN, BOILER MAKER Primary Care Provid er Nehemias Roland MD Unavailable Evelio Lara APRN, BOILER MAKER Unavailable [phone] Francis Aviles MD Unavailable [phone] Encounter Details Date Type Department Care Team (Late st Contact Info) Description 04/10/2023 Transcribe Orders [facility] Preop/Pacu II [address] [place] [id number] Evelio Lara APRN, BOILER MAKER [address] [place] [address] Pre-op testing (Primary Dx); Hematuria; Urethral stricture Social History Tobacco Use Types Packs/Day Years [...] on file Sexual Orientation Not on file COVID-19 Exposure Response Date Recorded In the last 10 days, have yo u been in contact with someone who was confirmed or suspected to have Coronavirus/COVID-19? No / Unsure 04/09/2023 11:38 AM CDT documented as of this encounter Plan of Treatment Not on file documented as of this encounter Results * (ABNORMAL) BASIC METABOLIC PANEL W/ CALCIUM TOTAL (04/16/2023 3:58 PM CDT) Pathologist [facility] SODIUM 144 136 - 145 mmol/L 04/16/2023 4:53 PM CDT [facility] POTASSIUM 3.4(L) 3.5 - 5.1 mmol/L 04/16/2023 4:53 PM CDT [facility] CHLORIDE 107 98 - 107 mmol/L 04/16/2023 4:53 PM CDT [facility] CO2, VENOUS 25 22 - 30 mmol/L 04/16/2023 4:53 PM CDT [facility] ANION GAP 15.4 <18.0 mmol/L 04/16/2023 4:53 PM CDT [facility] GLUCOSE 105(H) 70 - 99 mg/dL 04/16/2023 4:53 PM CDT [facility] BUN 11 8 - 26 mg/dL 04/16/2023 4:53 PM CDT [facility] CREATININE, BLOOD 1.08 0.70 - 1.30 mg/dL 04/16/2023 4:53 PM CDT [facility] BUN/CREATININE RATIO 10(L) 12 - 20 ratio 04/16/2023 4:53 PM CDT [facility] CALCIUM 9.0 8.7 - 10.5 mg/dL 04/16/2023 4:53 PM CDT [facility] IS THE PATIENT REQUIRED TO BE FASTING? No 04/16/2023 4:53 PM CDT [facility] GFR, ESTIMATED >60 >=60 04/16/2023 4:53 PM CDT [facility] Comment: Creatinine Clearance is the preferred criteria for selecting drug dose adjustments in renally impaired patients. The GFR is provided as additional pertinent clinical information. GFR is reported in mL/min/1.73 sq m. Calculation based on the Chronic Kidney Disease Epidemiology Collaboration (CKD- EPI) equation refit without adjustment for race. GFR, EST. >60 >=60 023 4:53 PM CDT [facility] GFR, EST. NONAFRICAN >60 >=60 04/16/2023 4:53 PM CDT [facility] Blood Venipuncture / Unknown 04/16/2023 3:58 PM CDT 04/16/2023 4:22 PM CDT Evelio Lara APRN, CNP CHEMISTRY ORDERABLES F inal Result [facility] #[address] [place] [address] documented in this encounter Visit Diagnoses Diagnosis Pre-op testing- Primary Preoperative examination, unspecified Hematuria Hematuria, unspecified Urethral stricture Urethral stricture, unspecified documented in this encounter Care Teams County Demonstrator Relationship Specialty Start Date End Date Roro Torres APRN, CNP #2 [facility] [address] [place] [address] PCP - General Advanced Practice Nurse 12/10/22 Nehemias Roland MD #2 [facility] [address] [place] [address] Consulting Physician Colon and Rectal Surgery 12/28/22 Evelio Lara APRN, CNP #2 [place] [address] Nurse Practitioner Advanced Practice Nurse 02/26/23 Francis Aviles MD #2 [facility] [address] [place] [address] Consulting Physician Urology 04/09/23 documented as of this encounter
--- OUTSIDE RECORDS SUMMARY | 2024-11-26 20:27 | XMS_ITS ---
Author Organization [facility] lisa Address [address] [facility] [address] [place] [address] Care Team Providers Care Middleware Consultant Name Role Phone Melissa GILBERT, Roro Primary Care Provider Unav chilangoable Doris Jay [phone] REASON FOR VISIT Refills Medications Medication SIG (Take, Route, Frequency, Duration) Notes Start Date End Date Status Methotrexate Sodium 2.5 MG TAKE 8 TABLET S BY MOUTH WEEKLY. for 84 Active Encounters Encounter Location Date Provider Diagnosis [facility] [address] [facility] [address] [place] [address] 09/06/2024 Doris Jay Plan Of Treatment Medication Medication Name Sig Start Date Stop Date Notes Methotrexate Sodium 2.5 MG TAKE 8 TABLET S BY MOUTH WEEKLY. for 84 Progress Notes * Tor AGUILARDOB:1970 ([age] yo M)Acc No.[id number]:09/06/2024 Patient: Tor VALE :1970 A ge:54 Y S ex:Male Address:[address] [place] [address], [address] * Refills Refill Methotrexate Sodium Tablet, 2.5 MG, 96 Tablet, TAKE 8 TABLETS BY MOUTH WEEKLY., 84, Refills=0 * true * Date: Generated for Gwen escobar/Brock/Brunilda on: 0 11/26/2024 08:27 PM CDT
--- OUTSIDE RECORDS SUMMARY | 2024-11-26 20:27 | XMS_ITS | Patient Health Record ---
Author Organization [facility] lisa Address [address] [place] [address] Care Team Providers Care Dramatic Coach Name Role Phone Melissa MANAGER INVESTIGATIONS, Roro Primary Care Provider Doris Espinosa Unavailable [phone] Allergies Allergen (clinical drug ingredient) Drug/Non Drug Allergy documented on EMR Reaction Allergy Type Onset Date Status leflunomide Leflunomide Unknown Drug Allergy 08/14/2021 Ac tive Results Component Value Reference Range Notes CBC w auto diff Reviewed date:04/27/2024 09:40:54 PM Interpretation: Performing Lab:[facility] , [address]. [facility] [address] Notes/Report: WBC 5.1 3.8-9.9 K/cumm Hgb 14.6 13.0-17.5 g/dL Hct 44.5 38.9-50.3 % Platelet Ct 291 150-400 K/cumm MPV 10.9 9.1-12.3 fL RBC 4.42 4.30-5.80 M/cumm MCV 100.7 81.3-96.4 fL MCH 33.0 27.1-33.3 pg MCHC 32.8 32.3-35.7 g/dL RDW CV 13.2 11.1-14.9 % RDW SD 48.7 35.7-48.1 fL NRBC Abs Auto 0.00 0.00-0.01 K/cumm CBC w auto diff Reviewed date:02/17/2024 06:58:09 PM Interpretation: Performing Lab:[facility] , [address] [facility] [place] [address] Notes/Report: WBC 6.8 3.8-9.9 K/cumm Hgb 14.6 13.0-17.5 g/dL Hct 43.6 38.9-50.3 % Platelet Ct 272 150-400 K/cumm MPV 10.8 9.1-12.3 fL RBC 4.46 4.30-5.80 M/cumm MCV 97.8 81.3-96.4 fL MCH 32.7 27.1-33.3 pg MCHC 33.5 32.3-35.7 g/dL RDW CV 13.6 11.1-14.9 % RDW SD 47.9 35.7-48.1 fL NRBC Abs Auto 0.00 0.00-0.01 K/cumm Comprehensive metabolic pane l (CMP) Reviewed date:02/17/2024 06:58:09 PM Interpretation: Performing Lab:[facility] , [address] [place] [address]. [facility] [address] Notes/Report: Sodium 140 135-145 mmol/L Plasma Potassium 4.2 3.3-4.9 mmol/L Hemolyzed; potassium value may be falsely elevated by as much as 0.6 - 1.0 mmol/L. Suggest redraw and reanalysis Chloride 103 97-110 mmol/L Total CO2 25 22-32 mmol/L Anion Gap 12 2-15 mmol/L BUN 11 6-25 mg/dL Creatinine 0.81 0.80-1.30 mg/dL Glucose 98 70-199 mg/dL Interpretive Data Fasting glucose >/= 126 mg/dl is diagnostic for diabetes. Fasting is defined as no caloric intake for at least 8 hours. Fasting glucose between 100 mg/dl to 125 mg/dl is diagnostic of prediabetes. In a patient with classic symptoms of hyperglycemia or hyperglycemic crisis, a random glucose >/= 200 mg/dl is diagnostic for diabetes. In the absence of unequivocal hyperglycemia, results should be confirmed by repeat testing. The classification and Diagnosis of Diabetes Diabetes Care 2021; 46: S19-S40. Current interpretive data was last revised 2022. Total Calcium 9.7 8.5-10.3 mg/dL Total Bilirubin 0.3 0.1-1.2 mg/dL Plasma Total Protein 6.9 6.5-8.5 g/dL Albumin 4.2 3.5-5.0 g/dL Alkaline Phosphatase 32 40-130 Units/L ALT 33 7-55 Units/L Moderately Hemo lyzed Specimen AST 35 10-50 Units/L Moderately Hem olyzed Specimen Differential Automated Reviewed date:02/17/2024 06:58:09 PM Interpretation: Performing Lab:[facility] , [address] [place] [address]. [facility] [address] Notes/Report: Neut Abs 4.6 1.5-6.5 K/cumm ImmGran Abs 0.0 0.0-0.1 K/cumm Lymphocyte Abs 1.2 0.8-3.3 K/cumm Lasalle Abs 0.8 0.2-0.8 K/cumm Eos Abs 0.2 0.0-0.5 K/cumm Baso Abs 0.1 0.0-0.1 K/cumm Neut Pct 67.2 Interpretive Data Percent cell count reference ranges are not reported, since discordance with absolute values may lead to misinterpretation of CBC data. Current Interpretive Data was last revised on 2017. ImmGran Pct 0.3 Interpretive Data Percent cell count reference ranges are not reported, since discordance with absolute values may lead to misinterpretation of CBC data. Current Interpretive Data was last revised on 2017. Lymph Pct 17.7 Interpretive Data Percent cell count reference ranges are not reported, since discordance with absolute values may lead to misinterpretation of CBC data. Current Interpretive Data was last revised on 2017. Lasalle Pct 11.1 Interpretive Data Percent cell count reference ranges are not reported, since discordance with absolute values may lead to misinterpretation of CBC data. Current Interpretive Data was last revised on 2017. Eos Pct 2.5 Interpretive Data Percent cell count reference ranges are not reported, since discordance with absolute values may lead to misinterpretation of CBC data. Current Interpretive Data was last revised on 2017. Baso Pct 1.2 Interpretive Data Percent cell count reference ranges are not reported, since discordance with absolute values may lead to misinterpretation of CBC data. Current Interpretive Data was last revised on 2017. eGFR Reviewed date:02/17/2024 06:58:09 PM Interpretation: Performing Lab:[facility] , [address] [facility] [place] [address] Notes/Report: eGFR >90 >=60 mL/min/1.73 m2 Interpretive Data Reference Interval Normal >/= 90 mL/min/1.73m2 Mildly decreased* 60 - 89 mL/min/1.73m2 Mildly to moderately decreased 45 - 59 mL/min/1.73m2 Moderately to severely decreased 30 - 44 mL/min/1.73m2 Severely decreased 15 - 29 mL/min/1.73m2 Kidney Failure < 15 mL/min/1.73m2 *Relative to young adult level Estimated glomerular filtration rate is determined by the 2020 CKD-EPI equation recommended by the National Kidney Foundation (A Unifying Approach to GFR Estimation: Recommendations of the NKF-ASK Task Force on Reassessing the Inclusion of Race in Diagnosing Kidney Disease, JASN 2020). The CKD-EPI equation should not be used for patients with unstable renal function and has not been validated in children and those over 70. Current interpretive data was last reviewed 2021. Differential Automated Reviewed date:04/27/2024 09:40:54 PM Interpretation: Performing Lab:[facility] , [address] [facility] [place] [address] Notes/Report: Neut Abs 2.5 1.5-6.5 K/cumm ImmGran Abs 0.0 0.0-0.1 K/cumm Lymphocyte Abs 1.4 0.8-3.3 K/cumm Lasalle Abs 0.8 0.2-0.8 K/cumm Eos Abs 0.4 0.0-0.5 K/cumm Baso Abs 0.1 0.0-0.1 K/cumm Neut Pct 48.5 Interpretive Data Percent cell count reference ranges are not reported, since discordance with absolute values may lead to misinterpretation of CBC data. Current Interpretive Data was last revised on 2017. ImmGran Pct 0.2 Interpretive Data Percent cell count reference ranges are not reported, since discordance with absolute values may lead to misinterpretation of CBC data. Current Interpretive Data was last revised on 2017. Lymph Pct 26.5 Interpretive Data Percent cell count reference ranges are not reported, since discordance with absolute values may lead to misinterpretation of CBC data. Current Interpretive Data was last revised on 2017. Lasalle Pct 16.1 Interpretive Data Percent cell count reference ranges are not reported, since discordance with absolute values may lead to misinterpretation of CBC data. Current Interpretive Data was last revised on 2017. Eos Pct 6.8 Interpretive Data Percent cell count reference ranges are not reported, since discordance with absolute values may lead to misinterpretation of CBC data. Current Interpretive Data was last revised on 2017. Baso Pct 1.9 Interpretive Data Percent cell count reference ranges are not reported, since discordance with absolute values may lead to misinterpretation of CBC data. Current Interpretive Data was last revised on 2017. Reason For Referral Reason BCBS Orencia Diagnosis 1 Other rheumatoid art hritis with rheumatoid factor of multiple sites (M05.89) Referring Provider First Name Doris Referring Provider Last Name Pierre Referring Provider Speciality Rheumatolo Referred [facility] ethan Referred Provider Doris Jay Referred Address [address], [place],[address], Referred Provider Specialty Rheumatology Procedure 1 ABATACEPT INJECTION (J0129) Referral Priority Routine Medications Medication SIG (Take, Route, Frequency, Duration) Notes Start Date End Date Status Folic Acid 1 MG TAKE 1 TABLET BY TANESHA TH EVERY DAY for 30 Active Methotrexate Sodium 2.5 MG TAKE 8 TABLET S BY MOUTH WEEKLY. for 84 Active Diclofenac Sodium 75 MG 1 Orally Twice a day for 30 days 04/20/2024 01/02/2025 Active Meloxicam 15 MG TAKE 1 TABLET(15 MG) BY MOUTH EVERY DAY Oral 02/10/2023 Active Tamsulosin HCl 0.4 MG Oral for 30 Days Active traMADol HCl 50 MG TAKE 1 TABLET BY TANESHA TH EVERY 12 HOURS for 30 11/01/2024 Active Problems Problem Type SNOMED Code ICD Code Onset Dates Problem Status W/U Status Risk Notes Problem [id number] Other rheumatoid arthritis with rheumatoid factor of multiple sites (M05.89) Active confirmed Vital Signs Heart Rate 69 /min 05/25/2024 Temperature 97.6 degrees Fahrenheit 05/25/2024 Height-cm 187.96 cm 05/25/2024 Blood pressure diastolic 84 mm Hg 05/25/2024 Oximetry 99 % 01/09/2024 Weight-kg 147.42 kg 05/25/2024 Height 74 in 05/25/2024 Blood pressure systolic 166 mm Hg 05/25/2024 Weight 325 lbs 05/25/2024 BMI 41.72 kg/m2 05/25/2024 Encounters Encounter Location Date Provider Diagnosis [facility] [address] [place] [address] 01/09/2024 Doris Du Other rheumatoid art hritis with rheumatoid factor of multiple sites M05.89 ; Pulmonary nodules R91.8 ; High risk medication use Z79.899 and Mediastinal lymphadenopathy R59.0 [facility] [address] [place] [address] 02/03/2024 Doris Du Other rheumatoid art hritis with rheumatoid factor of multiple sites M05.89 [facility] [address] [place] [address] 02/17/2024 Doris Du Other rheumatoid art hritis with rheumatoid factor of multiple sites M05.89 [facility] [address] [place] [address] 03/02/2024 Doris Du Other rheumatoid art hritis with rheumatoid factor of multiple sites M05.89 [facility] [address] [place] [address] 03/30/2024 Doris Du Other rheumatoid art hritis with rheumatoid factor of multiple sites M05.89 [facility] [address] [place] [address] 03/30/2024 Doris Du Other rheumatoid art hritis with rheumatoid factor of multiple sites M05.89 ; Pulmonary nodules R91.8 ; High risk medication use Z79.899 and Mediastinal lymphadenopathy R59.0 [facility] [address] [place] [address] 04/27/2024 Doris Du Other rheumatoid art hritis with rheumatoid factor of multiple sites M05.89 [facility] [address] [place] [address] 05/11/2024 Doris Du Other rheumatoid art hritis with rheumatoid factor of multiple sites M05.89 ; Pulmonary nodules R91.8 ; High risk medication use Z79.899 and Mediastinal lymphadenopathy R59.0 [facility] [address] [place] [address] 05/20/2024 Doris Jay Other rheumatoid art hritis with rheumatoid factor of multiple sites M05.89 ; Pulmonary nodules R91.8 ; High risk medication use Z79.899 and Mediastinal lymphadenopathy R59.0 [facility] [address] [place] [address] 05/25/2024 Doris Jay Other rheumatoid art hritis with rheumatoid factor of multiple sites M05.89 [facility] [address] [place] [address] 06/04/2024 Doris Jay Other rheumatoid art hritis with rheumatoid factor of multiple sites M05.89 ; Pulmonary nodules R91.8 ; High risk medication use Z79.899 and Mediastinal lymphadenopathy R59.0 [facility] [address] [place] [address] 12/23/2023 [facility] [address] [place] [address] 01/19/2024 [facility] [address] [place] [address] 01/29/2024 [facility] [address] [place] [address] 01/30/2024 [facility] [address] [place] [address] 01/30/2024 [facility] [address] [place] [address] 02/10/2024 [facility] [address] [place] [address] 02/18/2024 [facility] [address] [place] [address] 02/23/2024 [facility] [address] [place] [address] 02/26/2024 [facility] [address] [place] [address] 04/20/2024 [facility] [address] [place] [address] 04/28/2024 [facility] [address] [place] [address] 05/11/2024 [facility] [address] [place] [address] 05/15/2024 [facility] [address] [place] [address] 05/20/2024 [facility] [address] [place] [address] 05/25/2024 [facility] [address] [place] [address] 05/27/2024 [facility] [address] [place] [address] 05/28/2024 [facility] [address] [place] [address] 06/09/2024 [facility] [address] [place] [address] 06/09/2024 [facility] [address] [place] [address] 06/10/2024 [facility] [address] [place] [address] 06/15/2024 [facility] [address] [place] [address] 07/02/2024 [facility] [address] [place] [address] 07/02/2024 [facility] [address] [place] [address] 09/06/2024 [facility] [address] [place] [address] 11/01/2024 [facility] [address] [place] [address] 11/03/2024 [facility] [address] [place] [address] 12/23/2023 Doris aJy [facility] [address] [facility] [address] [place] [address] 07/02/2024 Doris Jay Assessments Encounter Date Diagnosis (ICD Code) Assessment Notes Treatment Notes Treatment Clinical Notes Section Notes 01/09/2024 Other rheumatoid arthritis with rheumatoid factor of multiple sites (ICD-10 - M05.89) failed methotrexate monotherapy, allergic to leflunomide, failed truxima, history of lung nodules and mediastinal lymphadenopathy , will avoid TNF blockers, labs and chest Xray today, will arrange orencia infusion 02/03/2024 Other rheumatoid arthritis with rheumatoid factor of multiple sites (ICD-10 - M05.89) 02/17/2024 Other rheumatoid arthritis with rheumatoid factor of multiple sites (ICD-10 - M05.89) 03/02/2024 Other rheumatoid arthritis with rheumatoid factor of multiple sites (ICD-10 - M05.89) 03/30/2024 Other rheumatoid arthritis with rheumatoid factor of multiple sites (ICD-10 - M05.89) 03/30/2024 Other rheumatoid arthritis with rheumatoid factor of multiple sites (ICD-10 - M05.89) improving, orencia helping, will continue, stay off prednisone 04/27/2024 Other rheumatoid arthritis with rheumatoid factor of multiple sites (ICD-10 - M05.89) 05/11/2024 Other rheumatoid arthritis with rheumatoid factor of multiple sites (ICD-10 - M05.89) flared up, start a medrol pack, continue orencia and MTX, work note emailed to him 05/20/2024 Other rheumatoid arthritis with rheumatoid factor of multiple sites (ICD-10 - M05.89) disability for m completed and faxed, work note written, to email to him, continue orencia, dicloefnac and MTX 05/25/2024 Other rheumatoid arthritis with rheumatoid factor of multiple sites (ICD-10 - M05.89) 06/04/2024 Other rheumatoid arthritis with rheumatoid factor of multiple sites (ICD-10 - M05.89) work accomodation request completed and faxed, continue orencia, diclofenac and MTX 06/04/2024 Pulmonary nodules (ICD-10 - R91.8) work accomodation request completed and faxed, continue orencia, diclofenac and MTX 05/20/2024 Pulmonary nodules (ICD-10 - R91.8) disability form completed and faxed, work note written, to email to him, continue orencia, dicloefnac and MTX 05/11/2024 Pulmonary nodules (ICD-10 - R91.8) flared up, start a medrol pack, continue orencia and MTX, work note emailed to him 01/09/2024 Pulmonary nodules (ICD-10 - R91.8) failed methotrexate monotherapy, allergic to leflunomide, failed truxima, history of lung nodules and mediastinal lymphadenopathy , will avoid TNF blockers, labs and chest Xray today, will arrange orencia infusion 03/30/2024 Pulmonary nodules (ICD-10 - R91.8) improving, orencia helping, will continue, stay off prednisone 01/09/2024 High risk medication use (ICD-10 - Z79.899) failed methotrexate monotherapy, allergic to leflunomide, failed truxima, history of lung nodules and mediastinal lymphadenopathy , will avoid TNF blockers, labs and chest Xray today, will arrange orencia infusion 03/30/2024 High risk medication use (ICD-10 - Z79.899) improving, orencia helping, will continue, stay off prednisone 05/11/2024 High risk medication use (ICD-10 - Z79.899) flared up, start a medrol pack, continue orencia and MTX, work note emailed to him 05/20/2024 High risk medication use (ICD-10 - Z79.899) disability fo rm completed and faxed, work note written, to email to him, continue orencia, dicloefnac and MTX 06/04/2024 High risk medication use (ICD-10 - Z79.899) work accomodation request completed and faxed, continue orencia, diclofenac and MTX 06/04/2024 Mediastinal lymphadenopathy (ICD-10 - R59.0) work accomodation request completed and faxed, continue orencia, diclofenac and MTX 05/20/2024 Mediastinal lymphadenopathy (ICD-10 - R59.0) disability form completed and faxed, work note written, to email to him, continue orencia, dicloefnac and MTX 05/11/2024 Mediastinal lymphadenopathy (ICD-10 - R59.0) flared up, start a medrol pack, continue orencia and MTX, work note emailed to him 03/30/2024 Mediastinal lymphadenopathy (ICD-10 - R59.0) improving, orencia helping, will continue, stay off prednisone 01/09/2024 Mediastinal lymphadenopathy (ICD-10 - R59.0) failed methotrexate monotherapy, allergic to leflunomide, failed truxima, history of lung nodules and mediastinal lymphadenopathy , will avoid TNF blockers, labs and chest Xray today, will arrange orencia infusion Plan Of Treatment Pending Test Test Name Order Date Chest X-ray PA and lateral 03/30/2024 Chest X-ray PA and lateral 01/09/2024 CBC With Differential/Platelet CBC With Differential/Platelet CMP - Comp. Metabolic Panel (14) 024 Chem-Comprehensive 08/22/2023 Quantiferon Gold 08/22/2023 QUANTIFERON - TB GOLD PLUS, 1 TUBE 01/08 QUANTIFERON - TB GOLD PLUS, 1 TUBE 03/30 C Reactive Protein 03/30/2024 C Reactive Protein 01/09/2024 CBC w auto diff 01/09/2024 CBC w auto diff 03/30/2024 Comprehensive metabolic panel (CMP) 03/2024 Comprehensive metabolic panel (CMP) 12/21 Haptoglobin quantitative 01/09/2024 Haptoglobin quantitative 03/30/2024 Sed Rate 03/30/2024 Sed Rate 01/09/2024 Insurance Providers Payer Name Payer Address Payer Phone Subscriber Number Group Number Insured Name Patient Relationship to Insured Coverage Start Date Coverage End Date [place] [address] [place] [address] [id number] Tor Cole Self - patient is the insured [employer] [address] [place] [address] [id number] Tor Cole Self - patient is the insured [employer] [address] [place] [address] [id number] Tor Cole Self - patient is the insured Medical (General) History Medical History History ICD Code Hilar adenopathy; Mediastinal adenopathy; Parotid nodule; Pulmonary nodule; Surgical History Surgery Date(Month/Year) Bronchoscopy; 2021-05-28 Carpal tunnel release; 2021-05-29 Cervical disc surgery; 2021-05-29
[2024-11-26 20:29] VITALS: BP 180/91; PULSE 80; RESP 17; TEMP 36.9; O2SAT 98
--- OUTSIDE RECORDS SUMMARY | 2024-11-26 23:30 | XMS_ITS | Referral Summary ---
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
--- OUTSIDE RECORDS SUMMARY | 2024-11-26 23:30 | XMS_ITS | Encounter Summary ---
Author Organization [facility] Address [address] [place] [address] Phone Care Team Providers Care Food Packer Name Role Phone Roro Torres APRN, GIS ANALYST DEVELOPER Primary Care Provid er Nehemias Roland MD Unavailable Evelio Lara APRN, GIS ANALYST DEVELOPER Unavailable [phone] Francis Aviles MD Unavailable [phone] Encounter Details Date Type Department Care Team (Late st Contact Info) Description 04/10/2023 Transcribe Orders [facility] Preop/Pacu II [address] [place] [id number] Evelio Lara APRN, GIS ANALYST DEVELOPER [address] [place] [address] Pre-op testing (Primary Dx); Hematuria; Urethral stricture [...] CALCIUM TOTAL (04/16/2023 3:58 PM CDT) Pathologist [facility] SODIUM 144 136 - 145 mmol/L 04/16/2023 4:53 PM CDT [facility] POTASSIUM 3.4(L) 3.5 - 5.1 mmol/L 04/16/2023 4:53 PM CDT [facility] CHLORIDE 107 98 - 107 mmol/L 04/16/2023 4:53 PM CDT [facility] CO2, VENOUS 25 22 - 30 mmol/L 04/16/2023 4:53 PM CDT [facility] ANION GAP 15.4 <18.0 mmol/L 04/16/2023 4:53 PM CDT [facility] GLUCOSE 105(H) 70 - 99 mg/dL 04/16/2023 4:53 PM CDT [facility] BUN 11 8 - 26 mg/dL 04/16/2023 4:53 PM CDT [facility] CREATININE, BLOOD 1.08 0.70 - 1.30 mg/dL 04/16/2023 4:53 PM CDT [facility] BUN/CREATININE RATIO 10(L) 12 - 20 ratio 04/16/2023 4:53 PM CDT [facility] CALCIUM 9.0 8.7 - 10.5 mg/dL 04/16/2023 4:53 PM CDT [facility] IS THE PATIENT REQUIRED TO BE FASTING? No 04/16/2023 4:53 PM CDT [facility] GFR, ESTIMATED >60 >=60 04/16/2023 4:53 PM CDT [facility] Comment: Creatinine Clearance is the preferred criteria for selecting drug dose adjustments in renally impaired patients. The GFR is provided as additional pertinent clinical information. GFR is reported in mL/min/1.73 sq m. Calculation based on the Chronic Kidney Disease Epidemiology Collaboration (CKD- EPI) equation refit without adjustment for race. GFR, EST. >60 >=60 023 4:53 PM CDT [facility] GFR, EST. NONAFRICAN >60 >=60 04/16/2023 4:53 PM CDT [facility] Blood Venipuncture / Unknown 04/16/2023 3:58 PM CDT 04/16/2023 4:22 PM CDT Evelio Lara APRN, CNP CHEMISTRY ORDERABLES F inal Result [facility] [address] [place] [address] documented in this encounter Visit Diagnoses Diagnosis Pre-op testing- Primary Preoperative examination, unspecified Hematuria Hematuria, unspecified Urethral stricture Urethral stricture, unspecified documented in this encounter Care Teams Food Packer Relationship Specialty Start Date End Date Roro Torres APRN, CNP #2 [facility] [address] [place] [address] PCP - General Advanced Practice Nurse 12/10/22 Nehemias Roland MD #2 [facility] [address] [place] [address] Consulting Physician Colon and Rectal Surgery 12/28/22 Evelio Lara APRN, CNP [address] [place] [address] Nurse Practitioner Advanced Practice Nurse 02/26/23 Francis Aviles MD #2 [facility] [address] [place] [address] Consulting Physician Urology 04/09/23 documented as of this encounter
--- OUTSIDE RECORDS SUMMARY | 2024-11-26 23:30 | XMS_ITS | Clinical Summary ---
Author Organization [facility] Address [address] [place] [address] Care Team Providers Care Line Assigner Name Role Phone Roro Torres SHADE BANDER-MOLDER FLOOR Primary Care Provide r Source Comments [facility],non-owned Affiliates and Associated Physician Practices is amultiple site organization consisting of ambulatory clinics and hospital sitesin [place], [place], [place] and [place]. This disclosure is being madepursuant to the Care Everywhere program and may not contain all information available regarding this patient. 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 Gender Identity Not on file Sexual Orientation Not on file Plan of Treatment Upcoming Encounters Date Type Department Care Team (Late st Contact Info) Description 02/18/2025 8:30 AM CDT Office Visit [facility] - Rheumatology [address] [place] [address], [place] [phone] Matti Peña MD [address] [place] [address] [place] [phone] Health Maintenance Due Date Last Done Comments [...] topic Insurance MEDICAID - [place] Care Teams Line Assigner Relationship Specialty Start Date End Date Roro Torres APRN-MOLDER FLOOR [address] [phone] PCP - General Nurse Practitioner 07/29/24
--- OUTSIDE RECORDS SUMMARY | 2024-11-26 23:31 | XMS_ITS | Encounter Summary ---
Author Organization [facility] Address [address] [place] [address] Phone Care Team Providers Care Checkroom Chief Name Role Phone Roro Torres APRN, SWAGE TOOLSETTER Primary Care Provid er Nehemias Roland MD Unavailable Evelio Lara APRN, SWAGE TOOLSETTER Unavailable [phone] Francis Aviles MD Unavailable [phone] Reason for Visit * Reason Comments Medication Refill Encounter Details Date Type Department Care Team (Late st Contact Info) Description 08/28/2023 Refill [facility] [address] [place] [phone] Francis Aviles MD #[address] [address] Medication Refill Social History Tobacco Use Types [...] Dept 06/25/23 Office Visit Garry Lucas MD [facility] 05/03/23 Office Visit Francis Aviles MD [facility] [place] 04/25/23 Office Visit Roro Torres APRN, [place]AR[facility]E [place] 04/09/23 Procedure Visit Francis Aviles MD [facility] [place] 02/26/23 Office Visit Evelio Lara APRN, KARLEE [facility] 01/08/23 Office Visit Roro Torres APRN, [place]ARLEE [place] [facility] 12/25/22 Office Visit Roro Torres APRN, [place] [place] [facility] 12/10/22 Office Visit Roro Torres APRN, KAR[facility] [place] Showing recent visits within past 365 days and meeting all other requirements Future Appointments No visits were found meeting these conditions. Showing future appointments within next 90 days and meeting all other requirements OSAL DIRECTOR documented in this encounter Plan of Treatment Not on file documented as of this encounter Visit Diagnoses Not on filedocumented in this encounter Care Teams Checkroom Chief Relationship Specialty Start Date End Date Roro Torres APRN, KARLEE [address] [phone] PCP - General Advanced Practice Nurse 12/10/22 Nehemias Roland MD #2 [facility] [address] [place] [address] Consulting Physician Colon and Rectal Surgery 12/28/22 Evelio Lara APRN, SWAGE TOOLSETTER #[address] [place] [address] Nurse Practitioner Advanced Practice Nurse 02/26/23 Francis Aviles MD #2 [facility] [address] [place] [address] Consulting Physician Urology 04/09/23 documented as of this encounter
--- OUTSIDE RECORDS SUMMARY | 2024-11-26 23:31 | XMS_ITS | Clinical Summary ---
Author Organization [facility] Address [address] [place] [address] Phone Care Team Providers Care Health Care Assistant Name Role Phone Roro Torres APRN, CNC MILLING MACHINE OPERATOR Primary Care Provid er Nehemias Roland MD Unavailable Evelio Lara APRN, CNC MILLING MACHINE OPERATOR Unavailable [phone] Francis Avilse MD Unavailable [phone] Allergies Active Allergy Reactions Criticality Noted [...] Type Department Care Team Description 11/[facility] [place] [address] Roro Torres APRN, KARLEE Medication Refill 11/03[facility]20[facility] [place] [address] Roro Torres APRN, KARLEE Medication Refill 10/27/2024 [facility] [address] [place] [address] Roro Torres APRN, CNP Follow-up 10/27/2024 Refill [facility] [place] [phone] Garry Lucas MD Medication Refill 10/12/2024 Telephone [facility] [place] [phone] Laurent Prasad MD Form Completion 09/09/2024 Telephone [facility] [address] [place] [address] Roro Torres APRN, CNP Need Order from [...] Comments Blood Pressure 130/64 05/26/2024 6:53 AM ASSIGNMENT OFFICER Pulse 71 05/26/2024 6:53 AM ASSIGNMENT OFFICER Temperature 37.2 C (99 F) 05/26/2024 6:53 AM ASSIGNMENT OFFICER Respiratory Rate 12 05/26/2024 6:53 AM ASSIGNMENT OFFICER Oxygen Saturation 97% 05/26/2024 6:53 AM ASSIGNMENT OFFICER Inhaled Oxygen Concentration - - Weight 147.6 kg (325 lb 6.4 oz) 05/26/2024 6:53 AM ASSIGNMENT OFFICER Height 185.4 cm (6' 1 ) 05/26/2024 6:53 AM ASSIGNMENT OFFICER Body Mass Index 42.93 05/26/2024 6:53 AM ASSIGNMENT OFFICER Plan of Treatment Health Maintenance Due Date [...] Comments PHYSICAL THERAPY CONSULT 09/22/2024 12:00 AM ASSIGNMENT OFFICER from Last 3 Months Results * PHYSICAL THERAPY CONSULT (09/22/2024 12:00 AM ASSIGNMENT OFFICER) 09/22/2024 us Provider Scan GENERIC SCAN ORDERS CONSULT Sophie pretty Result SCAN from Last 3 Months Insurance MEDICAID [place] Care Teams Health Care Assistant Relationship Specialty Start Date End Date Roro Torres APRN, CNC MILLING MACHINE OPERATOR #2 [facility] [address] [place] [phone] PCP - General Advanced Practice Nurse 12/10/22 Nehemias Roland MD #2 [facility] [address] [place] [address] Consulting Physician Colon and Rectal Surgery 12/28/22 Evelio Lara APRN, CNC MILLING MACHINE OPERATOR #2 [place] [address] Nurse Practitioner Advanced Practice Nurse 02/26/23 Francis Aviles MD #2 [facility] [address] [place] [address] Consulting Physician Urology 04/09/23
--- OUTSIDE RECORDS SUMMARY | 2024-11-26 23:31 | XMS_ITS | Clinical Summary ---
Author Organization [facility] Address [address] [place] [address] Care Team Providers Care Supply And Distribution Manager Name Role Phone No, Physician Primary Care Provider [phone] Allergies No known active allergies Medications ibuprofen [...] on file Legal Sex Male 10:55 AM BULLARD OPERATOR Gender Identity Not on file Sexual [...] 23 Insurance [place] [employer] [facility] [employer] OOS Care Teams Supply And Distribution Manager Relationship Specialty Start Date End Date No, Physician PCP - General 04/26/21
--- OUTSIDE RECORDS SUMMARY | 2024-11-26 23:31 | XMS_ITS | Encounter Summary ---
Author Organization [facility] Address [address] [place] [address] Phone Care Team Providers Care Testing Tech Name Role Phone Roro Torres APRN, DIRECTOR POST Primary Care Provid er Nehemias Roland MD Unavailable Evelio Lara APRN, CNP Unavailable [phone] Francis Aviles MD Unavailable [phone] Reason for Visit * Reason Comments Medication Refill Encounter Details Date Type Department Care Team (Late st Contact Info) Description 11/26/2024 Refill [facility] #2 [place] [address] Roro Torres APRN, KARLEE #[address] [address] Medication Refill Social History Tobacco [...] 90 90 Each Roro Torres APRN, CNP [facility]/pharmacy #[id number] - ... HYDROCHLOROTHIAZIDE 12.5MG CAPSULES 08/04/2024 90 90 Each Roro Torres APRN, CNP [facility] #... documented in this encounter Plan of Treatment Not on file documented as of this encounter Visit Diagnoses Diagnosis Primary hypertension Unspecified essential hypertension documented in this encounter Care Teams Testing Tech Relationship Specialty Start Date End Date Roro Torres APRN, CNP #2 [facility] [address] [place] [address] PCP - General Advanced Practice Nurse 12/10/22 Nehemias Roland MD #2 [facility] [address] [place] [address] Consulting Physician Colon and Rectal Surgery 12/28/22 Evelio Lara APRN, CNP #2 [place] [address] Nurse Practitioner Advanced Practice Nurse 02/26/23 Francis Aviles MD #2 [facility] [address] [place] [address] Consulting Physician Urology 04/09/23 documented as of this encounter
== END 2024-11-26 23:24 | disposition left against medical advice (07) ==
DX: M25.561 Pain in right knee (principal)
CPT/HCPCS: 99199